=== PATIENT | male | born 2005 | race Caucasian/White ===

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

== ENCOUNTER 2024-12-05 08:49 | Emergency (ER) | payer OTHER ==
[~2024-12-05] VITALS: Ht 167.6 cm; Wt 109.1 kg
[~2024-12-05 08:49] MED LIST: ERGO500054 PO; METF-1211 PO; OSEL75CA45 PO; SIMV10TA97 PO
[2024-12-05 09:02] VITALS: TEMP 98.6
[2024-12-05 09:31] LABS: APPEARANCE,URINE TURBID (CLEAR); BILIRUBIN,URINE NEGATIVE (NEGATIVE); COLOR,URINE RED (YELLOW); GLUCOSE, URINE (UA) NEGATIVE (NEGATIVE); KETONES,URINE TRACE mg/dL (NEGATIVE); LEUKOCYTE ESTERASE ,URINE TRACE (NEGATIVE); NITRATE,URINE NEGATIVE (NEGATIVE); OCCULT BLOOD,URINE LARGE (NEGATIVE); PH,URINE 5.5 (5.0-8.0); PROTEIN,URINE 100-200,SEE CONFIRM mg/dL (NEGATIVE); SPECIFIC GRAVITIY, URINE 1.026 (1.003-1.030); UROBILINOGEN,URINE <=1.0 mg/dL (<=1.0)
[2024-12-05 09:34] LABS: BACTERIA,URINE Moderate /HPF (None Seen); RBC,URINE Full Field /HPF (0-2); SQUAMOUS EPITHELIAL CELL,UR Few /LPF (None Seen); SULFOSALICYLIC ACID,URINE 3+ (Negative); WBC,URINE 0-2 /HPF (0-5); YEAST,URINE Moderate /HPF (None Seen)
[2024-12-05] MEDS: KETOROLAC TROMETHAMINE 30 MG/ML VIAL IVP ONE (10:51)
[2024-12-05] MEDS: SODIUM CHLORIDE 0.9% 1,000 ML IV ONE (10:51)
[2024-12-05 14:05] VITALS: BP 127/76; PULSE 78; RESP 18; O2SAT 99
[2024-12-05] MEDS ORDERED: CEPH-558 PO (14:11)
[2024-12-05] MEDS ORDERED: IBUP-1492 PO (14:12)
== END 2024-12-05 14:30 | disposition home or self-care (01) ==
LOC: EMS 08:49
DX: N13.2 Hydronephrosis with renal and ureteral calculous obstruction (principal); Z79.899 Other long term (current) drug therapy
CPT/HCPCS: 99285; 74176; 96374; 96361; 81001; 87086; J1885; J7030; 81002